=== PATIENT | female | born 1975 | race African-American/Black ===

== ENCOUNTER 2016-06-16 23:00 | Inpatient (IN) | payer MEDICAID ==
[2016-06-16] MEDS ORDERED: Magnesium Hydroxide (MOM) 30 mL UDC PO PRN (23:41)
[2016-06-16] MEDS ORDERED: Maalox 30 mL Cup PO PRN (23:41)
[2016-06-16] MEDS ORDERED: Hydrocodone/APAP 10 mg/325 mg Tab PO PRN (23:41)
[2016-06-16] MEDS ORDERED: Hydrocodone/APAP 5mg/325mg Tab PO PRN (23:41)
[2016-06-17 00:29] VITALS: BP 100/60
[2016-06-17 00:50] LABS: % BASOPHILS 0.2 % (0.0-2.0); % EOSINOPHILS 0.4 % (0.0-5.0); % LYMPHOCYTES 28.1 % (20.0-50.0); % MONOCYTES 7.1 % (2.0-10.0); % NEUTROPHILS 64.2 % (40.0-80.0); HEMATOCRIT 35.4 % (35.0-45.0); HEMOGLOBIN 11.9 gm/dL (11.7-15.5); MEAN CELL VOLUME 95.5 fl (81-100); MEAN CORPUSCULAR HEMOGLOBIN 32.1 pg (27.0-31.0); MEAN CORPUSCULAR HGB CONC 33.7 pg (28.0-36.0); MEAN PLATELET VOLUME 7.3 fl; NEUTROPHILE ABSOLUTE 5.6 Th/cmm (1.8-8.0); PLATELET COUNT 347 Th/cmm (150-400); RED CELL DISTRIBUTION WIDTH 13.2 % (11.5-20.0); WHITE BLOOD COUNT 8.6 Th/cmm (4.8-10.8)
[2016-06-17 01:06] LABS: ANION GAP 13.7 (7.0-16.0); CARBON DIOXIDE 21.8 mEq/L (21.0-31.0); CHLORIDE 105 mEq/L (98-107); GLUCOSE 104 mg/dL (70-105); POTASSIUM SERUM 3.5 mEq/L (3.5-5.1); SODIUM SERUM 137 mEq/L (136-145)
[2016-06-17 01:07] LABS: ALB/GLOB RATIO 1.2 (1.0-1.8); ALKALINE PHOSPHATASE 36 U/L (34-104); BILIRUBIN,TOTAL 0.6 mg/dL (0.3-1.0); BUN - UREA NITROGEN 12 mg/dL (7-25); BUN/CREATININE RATIO 13.3; CALCIUM SERUM 9.3 mg/dL (8.6-10.3); CREATININE - SERUM 0.9 mg/dL (0.6-1.2); SGOT 15 U/L (13-39); SGPT/ALT 3 U/L (7-52)
[2016-06-17] MEDS: D5-0.9%NS 1,000 ML IV SCH ×2 (02:06→22:38)
[2016-06-17 06:53] LABS: % BASOPHILS 0.3 % (0.0-2.0); % EOSINOPHILS 0.7 % (0.0-5.0); % LYMPHOCYTES 34.7 % (20.0-50.0); % MONOCYTES 12.2 % (2.0-10.0); % NEUTROPHILS 52.1 % (40.0-80.0); HEMATOCRIT 32.9 % (35.0-45.0); HEMOGLOBIN 11.1 gm/dL (11.7-15.5); MEAN CELL VOLUME 96.7 fl (81-100); MEAN CORPUSCULAR HEMOGLOBIN 32.6 pg (27.0-31.0); MEAN CORPUSCULAR HGB CONC 33.7 pg (28.0-36.0); MEAN PLATELET VOLUME 7.8 fl; NEUTROPHILE ABSOLUTE 3.7 Th/cmm (1.8-8.0); PLATELET COUNT 316 Th/cmm (150-400); RED CELL DISTRIBUTION WIDTH 13.4 % (11.5-20.0); WHITE BLOOD COUNT 6.9 Th/cmm (4.8-10.8)
[2016-06-17 06:59] LABS: ALB/GLOB RATIO 1.3 (1.0-1.8); ALKALINE PHOSPHATASE 31 U/L (34-104); ANION GAP 10.7 (7.0-16.0); BILIRUBIN,TOTAL 0.5 mg/dL (0.3-1.0); BUN - UREA NITROGEN 12 mg/dL (7-25); BUN/CREATININE RATIO 13.3; CALCIUM SERUM 8.9 mg/dL (8.6-10.3); CARBON DIOXIDE 22.5 mEq/L (21.0-31.0); CHLORIDE 107 mEq/L (98-107); CREATININE - SERUM 0.9 mg/dL (0.6-1.2); GLUCOSE 106 mg/dL (70-105); POTASSIUM SERUM 3.2 mEq/L (3.5-5.1); SGOT 13 U/L (13-39); SGPT/ALT 3 U/L (7-52); SODIUM SERUM 137 mEq/L (136-145)
[2016-06-17 07:43] LABS: URINE COLOR YELLOW; URINE GLUCOSE (UA) NEGATIVE (NEGATIVE)
[2016-06-17 07:44] LABS: URINE BILIRUBIN MODERATE (NEGATIVE); URINE BLOOD MODERATE (NEGATIVE); URINE KETONE 40 mg/dL (NEGATIVE); URINE PROTEIN 30 mg/dL (NEGATIVE); URINE UROBILINOGEN 0.2 E.U./dL (0.2 - 1.0)
[2016-06-17 08:17] LABS: URINE BACTERIA FEW /hpf (NONE SEEN); URINE EPITHELIAL CELLS MODERATE /lpf (FEW)
--- NOTE | 2016-06-17 11:12 | Diagnostic Imaging Report ---
KUB abdominal film (portable) HISTORY: Pain There is a nonspecific gas pattern of nondilated bowel. No free intraperitoneal air. No abnormal calcifications project over the kidneys. IMPRESSION: 1. No acute radiographic abnormalities
--- NOTE | 2016-06-17 22:14 | History & Physical ---
HISTORY OF PRESENT ILLNESS: The patient is a 40-year-old -[place] female who presented to [facility] ER for abdominal pain. The patient has been complaining of lower abdominal pain and right upper flank pain. The patient has been symptomatic approximately for the 2 days. Pain was cramping in nature. The patient also has nausea, but no vomiting. The patient denies any diarrhea, dysuria or hematuria. The patient denies urinary frequency. The patient denies any acute complaints. ALLERGIES: No known allergies. REVIEW OF SYSTEMS: See History of Present Illness. PAST MEDICAL HISTORY: Negative. PAST SURGICAL HISTORY: Negative. PHYSICAL EXAMINATION: GENERAL: The patient is awake, alert, nontoxic in appearance. HEENT: Normocephalic, atraumatic. Extraocular movements are intact. Oropharynx is clear. NECK: Supple. No thyromegaly, no lymphadenopathy. RESPIRATORY: Clear. No wheeze, rales or rhonchi. CARDIOVASCULAR: S1, S2. No murmurs, rubs or gallops. GASTROINTESTINAL: Soft, no tenderness, nondistended. Positive bowel sounds. GENITOURINARY: No CVA tenderness, no suprapubic tenderness. BACK: No midline tenderness. EXTREMITIES: Equal pulses bilaterally. No cyanosis or clubbing. SKIN: Negative. PSYCHIATRIC: Negative. NEUROLOGIC: Cranial nerves intact. Extraocular movements intact. Sensation intact. Neurovascular is intact. Bilateral muscle strength normal. ER COURSE: A CAT scan done of the abdomen and pelvis shows [id number] hydronephrosis, small bilateral renal stones 2 mm. LABORATORY DATA ON ADMISSION: Hematology: WBC 8.6, hemoglobin 11.9, hematocrit per labs, platelet count of 347, no left shift noted. Chemistry: Sodium 137, potassium 3.5, chloride 105, bicarbonate 21, anion gap of 13.7, BUN 12, creatinine 0.9. GFR is more than 60. Glucose is 104, calcium 9.3, total bilirubin 0.6. AST 15, ALT 3, alkaline phosphatase 36. Total protein 7.6, albumin 4.2, globulin 3.4. Urinalysis shows 30 protein, 40 ketones, moderate blood, moderate bilirubin, 5-10 rbc's, 5-10 wbc's, bacteria few. CULTURE RESULTS: There are no new culture results. ASSESSMENT: 1. Abdominal pain. Intractable nausea and vomiting. 2. Bilateral renal calculi. 3. Bilateral hydronephrosis. PLAN: The patient will be admitted to Med-Surg Unit, seen by Dr. Stone Peñaloza. GI consultation with Dr. Chatman and associates. Obtain further lab consultations. JOB# [id number] MTDKrys
--- NOTE | 2016-06-18 02:31 | Consultation ---
INPATIENT GI CONSULT REFERRING PHYSICIAN: Dr. Danie Peñaloza. REASON FOR CONSULTATION: Nausea and vomiting. HISTORY OF PRESENT ILLNESS: This is a 40-year-old female who developed acute onset of nausea and vomiting along with some back and flank discomfort. For that reason she came to the hospital. She denies having any hematemesis or coffee ground emesis. Furthermore denies having any nausea or vomiting today. Denies diarrhea or constipation. PAST MEDICAL HISTORY: None. PAST SURGICAL HISTORY: None ____. FAMILY HISTORY: Noncontributory. SOCIAL HISTORY: Smokes tobacco. Drinks alcohol. No IV drug usage. ALLERGIES: None. CURRENT MEDICATIONS: Tylenol, Appling, Maalox, Toradol, Ativan, milk of magnesia and Zofran. REVIEW OF SYSTEMS: Ten point review of systems was performed. The pertinent positive was nausea and vomiting. All other systems were otherwise negative. PHYSICAL EXAMINATION: VITAL SIGNS: Temperature 97.9, breathing 18, pulse 76, blood pressure is 103/61 and satting 99%. GENERAL: In no apparent distress. EYES: Anicteric, normal conjunctivae. HEENT: Normocephalic and atraumatic. Moist mucous membranes. NECK: Soft and supple. CHEST: Clear. Normal effort. CARDIOVASCULAR: Regular rate and rhythm. ABDOMEN: Soft, nontender and nondistended. SKIN: Warm and dry. EXTREMITIES: Reveal no cyanosis. LABORATORY DATA: Show white count 6.9, hemoglobin 11.1 and platelets of 316. LFTs were within normal limits. KUB ____ nonspecific. IMPRESSION: This is a 40-year-old female with nausea and vomiting that has since improved and almost resolved, cause is unknown. GI workup could include endoscopy, imaging studies and laboratory tests. Endoscopy was offered to the patient, but she declined. She was made aware that failure to have proper workup could result in a missed diagnosis, missed cancer, missed cure and treatment opportunity resulting in early or unforeseeable disability. PLAN: 1. Since the patient refused EGD, we will order upper GI series, pending the results of her test. 2. Check an abdominal ultrasound. 3. Check a lipase level. 4. Continue supportive care. Thank you for allowing me to participate. Please call me if you have any questions. JOB# [id number]
[2016-06-18 07:35] LABS: HEMATOCRIT 31.8 % (35.0-45.0); HEMOGLOBIN 10.6 gm/dL (11.7-15.5); MEAN CELL VOLUME 95.9 fl (81-100); MEAN CORPUSCULAR HGB CONC 33.4 pg (28.0-36.0); MEAN PLATELET VOLUME 7.6 fl; PLATELET COUNT 314 Th/cmm (150-400); RED BLOOD COUNT 3.31 Mil/cmm (3.80-5.10); RED CELL DISTRIBUTION WIDTH 13.4 % (11.5-20.0); WHITE BLOOD COUNT 4.8 Th/cmm (4.8-10.8)
[2016-06-18 07:43] LABS: ANION GAP 8.8 (7.0-16.0); BUN - UREA NITROGEN 8 mg/dL (7-25); BUN/CREATININE RATIO 13.3; CALCIUM SERUM 8.5 mg/dL (8.6-10.3); CARBON DIOXIDE 22.7 mEq/L (21.0-31.0); CHLORIDE 112 mEq/L (98-107); CREATININE - SERUM 0.6 mg/dL (0.6-1.2); GLUCOSE 107 mg/dL (70-105); POTASSIUM SERUM 3.5 mEq/L (3.5-5.1); SODIUM SERUM 140 mEq/L (136-145)
[2016-06-18 11:23] LABS: EOSINOPHIL 1 % (0-5); NEUTROPHILS 34 % (40-80); PLATELET ESTIMATE ADEQUATE (NORMAL); PLATELET MORPHOLOGY NORMAL (NORMAL); TOTAL CELLS COUNTED 100
--- NOTE | 2016-06-18 19:08 | Discharge Summary ---
DISCHARGE DIAGNOSES: 1. Abdominal pian (resolved). 2. Intractable nausea and vomiting (resolved). 3. Bilateral renal calculi (resolved). 4. Bilateral hydronephrosis (resolved). HOSPITAL COURSE: The patient is a 40-year-old -[place] female who was transferred from [facility] ER for abdominal pain and intractable nausea and vomiting. The patient was admitted with diagnoses of abdominal pain and intractable nausea and vomiting, bilateral renal calculi, and bilateral hydronephrosis. GI consultation was obtained by Dr. Chatman and associates. The patient has abdominal ultrasound done, which was within normal limits. The patient had KUB done, which was within normal limits. The patient will be discharged home today. The patient will follow her PMD or PCP in 1 week's time. JOB# [id number] GERMAINE
--- NOTE | 2016-06-18 21:38 | Progress Notes ---
SUBJECTIVE: The patient is awake and alert. The patient is tolerating p.o. intake. The patient denies any abdominal pain. The patient denies any nausea or vomiting. PHYSICAL EXAMINATION: VITAL SIGNS: Temperature 97.8, pulse 70, blood pressure 112/72, respiratory rate 19, O2 saturation 100% on room air. CARDIOVASCULAR: S1 and S2. RESPIRATORY: Clear. GASTROINTESTINAL: Soft. Positive bowel sounds. LABORATORY DATA: Hematology: WBC of 4.8, hemoglobin 10.6, hematocrit 31.8, platelet count of 314. Chemistry: Sodium 140, potassium 3.5, chloride per labs , bicarbonate 22, anion gap 8.8, BUN 8, creatinine 0.6. GFR is more than 60. Glucose 107, calcium 8.5. MICROBIOLOGY: No new microbiology results. RADIOLOGY: Abdominal ultrasound exam within normal limits. ASSESSMENT: 1. Abdominal pain (resolved). 2. Intractable nausea and vomiting (resolved). 3. Bilateral renal calculi (resolved). 4. Bilateral hydronephrosis (resolved). PLAN: Continue current medication and treatment. chemical plant manager for discharge planning. JOB# [id number] MTDD
--- NOTE | 2016-06-19 09:32 | Diagnostic Imaging Report ---
Abdominal ultrasound HISTORY: Nausea/vomiting The liver exhibits a homogeneous parenchyma. No focal lesions. The gallbladder appears normal. No calculi are seen. No abnormality seen in the region of the pancreas. No focal renal lesions. No other retroperitoneal or intra-abdominal abnormalities. IMPRESSION: Negative examination
== END 2016-06-18 13:30 | disposition home or self-care (01) | DRG 465 ==
LOC: MSI 23:00
PROVIDERS: ADMIT Preventive Medicine Preventive Medicine/Occupational Environmental Medicine; ATTEND Preventive Medicine Preventive Medicine/Occupational Environmental Medicine
DX: N13.39 Other hydronephrosis (principal); N20.0 Calculus of kidney; R10.9 Unspecified abdominal pain; F17.210 Nicotine dependence, cigarettes, uncomplicated; R11.2 Nausea with vomiting, unspecified
CPT/HCPCS: 36415-UA; 74000-TC; 76700-TC; 80048-TC; 80053-TC; 81001-TC; 83690-TC; 85007-TC; 85025-TC; 85027-TC; J7042; Z7610

== ENCOUNTER 2016-07-06 05:05 | Inpatient (IN) | payer MEDICAID ==
[2016-07-06 05:34] VITALS: BP 122/64
--- NOTE | 2016-07-06 06:26 | Admit Criteria Form ---
Admit Criteria Forms - Admit Criteria Diagnosis: VOMITING Clinical Indications for Admission to Inpatient Care ( Place 'X' for any and all applicable criteria): Admission is indicated for ANY ONE of the following(1)(2)(3): [X ]I. Inpatient admission required rather than observation care because of ANY ONE of the following: [ ]i) Hemodynamic instability that is severe or persistent [ X]ii) Vomiting that is severe or persistent [ ]iii) Severe electrolyte abnormalities requiring inpatient care [ ]iv) Severe pain requiring acute inpatient management [ ]v) High fever or infection requiring inpatient admission as indicated by ANY ONE of the following(7)(8): [ ]1) Appropriate outpatient or observation care antimicrobial treatment unavailable, not effective, or not feasible [ ]2) Documented bacteremia [ ]3) Temp >104.9 degrees F (40.5 degrees C) (oral) [ ]4) Temp >103.1 degrees F (39.5 C) (oral) or <96.8 degrees F (36 C) (rectal) that does not respond to all emergency treatment measures [ ]vi) Acute renal failure [ ]vii) IV fluid to replace significant ongoing losses (greater than 3 L/m2 per day) [ ]viii) Parenteral nutrition regimen that must be implemented on inpatient basis [ ]ix) Other condition, treatment or monitoring requiring inpatient admission [ ]II. Complete or partial gastrointestinal obstruction [ ]III. Other cause of vomiting requiring hospitalization (eg, poisoning, increased intracranial pressure) [ ]IV. Vomiting due to significant metabolic derangement (eg, severe hypercalcemia, diabetic ketoacidosis) Extended stay beyond goal length of stay may be needed for(1)(4): [ ]a) Severe vomiting [ ]b) Persistent vomiting, vital sign changes, severe electrolyte imbalance , or diagnosed cause of vomiting that requires continued hospitalization (eg, gastrointestinal obstruction , increased intracranial pressure) [ ]c) Surgery to treat identified causes of vomiting (eg, bowel obstruction , intracranial process) [ ]d) Comorbid illness that requires inpatient care (eg, acute heart failure , renal failure) [ ]e) Need for inpatient endoscopy The original [facility] content created by Melony Tobias has been revised. The portions of the content which have been revised are identified through the use of italic text or in bold, and Melony Tobias has neither reviewed nor approved the modified material. All other unmodified content is copyright [facility]. Please see references footnoted in the original [facility] edition 2016 Admit Criteria Met?: Yes
[2016-07-06] MEDS ORDERED: Magnesium Hydroxide (MOM) 30 mL UDC PO PRN (06:49)
[2016-07-06] MEDS ORDERED: Hydrocodone/APAP 10 mg/325 mg Tab PO PRN (06:49)
[2016-07-06] MEDS ORDERED: Morphine Sulfate 2 mg/mL 1mL Syr IVP PRN (06:49)
[2016-07-06] MEDS ORDERED: Maalox 30 mL Cup PO PRN (06:49)
[2016-07-06] MEDS ORDERED: Hydrocodone/APAP 5mg/325mg Tab PO PRN (06:49)
[2016-07-06] MEDS ORDERED: D5-0.9%NS 1,000 ML IV SCH (07:00)
[2016-07-06 08:03] LABS: % NEUTROPHILS 52.9 % (40.0-80.0); HEMATOCRIT 33.6 % (35.0-45.0); HEMOGLOBIN 11.3 gm/dL (11.7-15.5); MEAN CORPUSCULAR HGB CONC 33.7 pg (28.0-36.0); MEAN PLATELET VOLUME 7.7 fl; PLATELET COUNT 287 Th/cmm (150-400); RED BLOOD COUNT 3.54 Mil/cmm (3.80-5.10); RED CELL DISTRIBUTION WIDTH 13.1 % (11.5-20.0)
[2016-07-06 08:04] LABS: % BASOPHILS 0.3 % (0.0-2.0); % EOSINOPHILS 0.2 % (0.0-5.0); % LYMPHOCYTES 37.6 % (20.0-50.0); NEUTROPHILE ABSOLUTE 3.7 Th/cmm (1.8-8.0)
[2016-07-06 08:05] LABS: WHITE BLOOD COUNT 6.9 Th/cmm (4.8-10.8)
[2016-07-06 08:23] LABS: ALB/GLOB RATIO 1.2 (1.0-1.8); ALKALINE PHOSPHATASE 33 U/L (34-104); ANION GAP 2.5 (7.0-16.0); BILIRUBIN,TOTAL 0.4 mg/dL (0.3-1.0); BUN - UREA NITROGEN 8 mg/dL (7-25); BUN/CREATININE RATIO 11.4; CALCIUM SERUM 8.7 mg/dL (8.6-10.3); CARBON DIOXIDE 24.5 mEq/L (21.0-31.0); CHLORIDE 113 mEq/L (98-107); CREATININE - SERUM 0.7 mg/dL (0.6-1.2); GLUCOSE 101 mg/dL (70-105); SGOT 13 U/L (13-39); SGPT/ALT 4 U/L (7-52); SODIUM SERUM 136 mEq/L (136-145)
[2016-07-06] MEDS ORDERED: Pneumococcal Vaccine 0.5 mL Vial IM ONE (10:00)
[2016-07-06] MEDS ORDERED: Influenza Vaccine 0.5 mL Syr IM ONE (10:05)
--- NOTE | 2016-07-06 11:12 | Diagnostic Imaging Report ---
KUB History: Pain rule out renal stones Comparison: KUB on 06/17/2016 and ultrasound abdomen on 06/18/2016 Findings: In the interval ring is noted. The bowel gas pattern is nonspecific. Moderate stool is noted. There is a 2 mm calcification seen along the right mid pelvis. Additional 2 mm calcification in the left lower pelvis is noted. Mild scoliosis is noted. IMPRESSION: Small subtle 2 mm calcifications of the right upper and left lower pelvis. Findings are suggestive of vascular phleboliths. Small ureteral stones be considered less likely. Please correlate with urinalysis levels. If there is continued clinical concern for renal stones CT examination is recommended for further assessment.
[2016-07-06 13:18] LABS: URINE BILIRUBIN NEGATIVE (NEGATIVE); URINE COLOR YELLOW; URINE GLUCOSE (UA) NEGATIVE (NEGATIVE); URINE KETONE NEGATIVE (NEGATIVE)
[2016-07-06 13:19] LABS: URINE BLOOD TRACE (NEGATIVE); URINE PROTEIN NEGATIVE (NEGATIVE); URINE UROBILINOGEN 0.2 E.U./dL (0.2 - 1.0)
[2016-07-06 13:23] LABS: URINE BACTERIA NONE SEEN /hpf (NONE SEEN); URINE EPITHELIAL CELLS FEW /lpf (FEW)
--- NOTE | 2016-07-06 13:30 | History & Physical ---
CHIEF COMPLAINT: Abdominal pain. HISTORY OF PRESENT ILLNESS: The patient is a 40-year-old black female with history of kidney stones in the past. The patient presented to the ER previously on 06/16/2016 with left flank pain radiating to the left region with discomfort. No fever. Positive nausea, no vomiting. The patient took Aleve at home with no relief. The patient presented to [facility] ED again for abdominal pain radiating into the left flank area. She was previously told she need to see a urologist. The patient was previously advised to follow up with the urologist. PAST MEDICAL HISTORY: Negative. PAST SURGICAL HISTORY: Negative. ALLERGIES: No known allergies. MEDICATIONS: See medication reconciliation form. SOCIAL HISTORY: No reports of smoking, alcohol or drug use. REVIEW OF SYSTEMS: See history of present illness. PHYSICAL EXAMINATION: GENERAL: The patient is awake, alert, nontoxic in appearance. HEENT: Normocephalic, atraumatic. Extraocular movements intact. Pupils are reactive to light. Oropharynx is clear. NECK: Supple. No thyromegaly or lymphadenopathy. CARDIOVASCULAR: S1, S2. No murmurs, rubs, gallops. RESPIRATORY: Clear. No wheezing, rales or rhonchi. GASTROINTESTINAL: Soft, nontender, nondistended, positive bowel sounds. GENITOURINARY: No suprapubic tenderness. Left CVA tenderness present. BACK: No midline tenderness. EXTREMITIES: Equal pulses bilaterally. SKIN: Negative. PSYCHIATRIC: Negative. NEUROLOGIC: Cranial nerves 2-12 intact. Extraocular movements intact. Sensation intact. Bilateral muscles normal. LABORATORY DATA: Labs from [facility] ER are as follows: Urinalysis shows positive leukocyte esterase. CBC, WBC 7.2, hemoglobin 12.2, hematocrit 37.6, platelet count per labs. Electrolytes: Sodium 133, potassium 3.9, chloride 108, bicarbonate 24, anion gap of 6, BUN 8, creatinine 0.7. GFR is 189. IMPRESSION: 1. Abdominal pain. 2. Intractable nausea and vomiting. 3. History of nephrolithiasis. 4. Possible urinary tract infection. PLAN: The patient admitted to med-surg unit, seen by Dr. Stone Peñaloza. We will obtain GI consultation regarding intractable nausea, vomiting. We will obtain ID consultation regarding possible UTI. We will start the patient on IV antibiotics. [facility]# [id number] MTDKrys
--- NOTE | 2016-07-07 23:11 | Consultation ---
PRIMARY PHYSICIAN: Dr. Anay Peñaloza. HISTORY OF PRESENT ILLNESS: She is a 40-year-old female, was found to have renal colic on the right side about 3 weeks ago. Now, she is started having similar pain on the left side and she decided to go to [facility] where the patient was evaluated, was found to have UTI, she is transferred to [facility] for insurance purposes. PAST MEDICAL HISTORY: Renal colic 3 weeks ago, no allergies, the patient is smoker and alcoholic, no drugs. REVIEW OF SYSTEMS: A 14-point review of system negative except above. PHYSICAL EXAMINATION: GENERAL: Alert, awake, not in distress. VITAL SIGNS: With the following vital signs, temperature 97.7, pulse 66, respiration 19, blood pressure 122/60. HEENT: Mild pallor, no icterus or plaque. NECK: Supple, no thyroid. LUNGS: Breath sounds, bilateral vesicular. CARDIOVASCULAR: S1, S2. ABDOMEN: Soft, bowel sounds present. UA negative, ____ for 2-5 wbc, trace of blood. DIAGNOSIS: Renal colic. PLAN: The patient needs urology evaluation, transferred to other facility where service is available. Meanwhile, control pain with the morphine, hydrocodone p.r.n. Rest of the care as ordered in CPOE. Check the culture if positive. The patient will need systemic antibiotic. History of also tobacco and alcohol abuse. JOB# [id number]
== END 2016-07-06 20:00 | disposition left against medical advice (07) | DRG 465 ==
LOC: MSI 05:05
PROVIDERS: ADMIT Preventive Medicine Preventive Medicine/Occupational Environmental Medicine; ATTEND Preventive Medicine Preventive Medicine/Occupational Environmental Medicine
DX: N20.0 Calculus of kidney (principal); E87.2 Acidosis; N39.0 Urinary tract infection, site not specified; R11.2 Nausea with vomiting, unspecified; Z87.442 Personal history of urinary calculi
CPT/HCPCS: 36415-UA; 74000-TC; 80053-TC; 81001-TC; 83690-TC; 85025-TC; 87075-90; 87086-90; 87205-90; J7042